=== PATIENT | male | born 1985 ===

== ENCOUNTER 2016-10-04 12:39 | Emergency (ER) | payer BC ==
--- NOTE | ~2016-10-04 | ER ---
PATIENT'S NAME: DAVID SPRINGER RADHA [facility] [place] AGE: 30 Y [address] ROOM: [place] [address] LOCATION: [facility] ADMIT DATE: 10/04/2016 ER/Outpatient Report DISCHARGE DATE: 10/04/2016 FAMILY PHYSICIAN: PHYSICIAN, MARYLOU ATTENDING PHYSICIAN: Virginia Zapata Time of Arrival: 1239 hours. Time Seen: 1305 hours. IDENTIFICATION: 30-year-old male. CHIEF COMPLAINT: Chest pain. HISTORY OF PRESENT ILLNESS: The patient is a 30-year-old male, who presents complaining of chest pain 7/10 for the last 3 weeks, intermittent in nature, but now has been constant since this morning. Dizzy. No diaphoresis. He is short of breath. He has no prior history of heart problems. ALLERGIES: NO KNOWN DRUG ALLERGIES. CURRENT MEDICATIONS: [id number] Prilosec. MEDICAL PROBLEMS: Gastroesophageal reflux disease and Guillain[place], hospitalized in [place] three years ago. PRIOR SURGERIES: For hypospadias. SOCIAL HISTORY: The patient lives here in [place]. Works selling cellphones. Tobacco use, 1 pack per every 2-3 days. Alcohol use, rare. Drug use, denies. FAMILY HISTORY: The patient was adopted, so really unknown. REVIEW OF SYSTEMS: All systems reviewed and negative other than what is noted in the HPI. PATIENT'S NAME: DAVID SPRINGER RADHA [facility] [place] AGE: 30 Y [address] ROOM: [place] [address] LOCATION: [facility] ADMIT DATE: 10/04/2016 ER/Outpatient Report DISCHARGE DATE: 10/04/2016 FAMILY PHYSICIAN: PHYSICIAN, MARYLOU ATTENDING PHYSICIAN: Virginia Zapata PHYSICAL EXAMINATION: VITAL SIGNS: Weight 146.7. The patient is afebrile and vital signs are stable. HEENT: Head: Normocephalic, atraumatic. Ears: TMs translucent both ears. Nose: Mucosa pink. No lesions. Mouth: No lesions. Pharynx benign. NECK: Supple. No lymphadenopathy. LUNGS: Clear to auscultation. HEART: Regular rate and rhythm. No murmur, rub, or gallop. ABDOMEN: Soft, nondistended, and nontender. SKIN: [place], warm, and dry. No lesions or rashes noted. NEURO: The patient is alert and oriented x4. Cranial nerves 2 through 12 grossly intact. Motor strength 5/5 throughout. Sensation is intact to light touch. LABORATORY DATA: Chemistry panel, magnesium, and cardiac enzymes are all normal. ProBNP is 67. D-dimer 0.48. CBC is normal. The patient was given 4 baby aspirin and then a GI cocktail with some relief. He said the sharp pain had improved. One-view chest x-ray, no acute process, pending Radiology over-read. Initial EKG at 1303 hours, sinus bradycardia at 49 beats per minute, no acute ST elevation or depression. Repeat EKG at 1505 hours, sinus bradycardia, Q-waves noted in lead III and as previously noted, no acute ST elevation or depression. IMPRESSION: Chest pain. PLAN: Increase Prilosec to 20 mg b.i.d. for 7 days. Rest. No heavy exertion. Follow up with physician of choice in 1-3 days. Follow up sooner if any problems or concerns. A second set of cardiac enzymes were also negative. The patient and his significant other understand and agree, and all questions have been answered. VIRGINIA ZAPATA MD CAR/modl /[id number] d: 10/05/16 0015 t: 10/06/16 0800, OUTPATIENT REPORT
[2016-10-04 13:13] LABS: BASOPHIL % 0.4 %; EOSINOPHIL # 0.2 K/uL (0.0-0.5); EOSINOPHIL % 2.3 %; HEMOGLOBIN 14.2 g/dL (12.0-17.0); IMMATURE GRANULOCYTE % 0.3 %; LYMPHOCYTE # 3.3 K/uL (0.8-4.0); LYMPHOCYTE % 36.2 %; MCH 28.2 pg (27.0-34.0); MCV 85.5 fl (83.0-98.0); MONOCYTE # 0.6 K/uL (0.0-1.0); MONOCYTE % 6.7 %; MPV 8.7 fl (9.4-12.4); NEUTROPHIL # (ANC) 4.9 K/uL (1.4-9.0); NEUTROPHIL % 54.1 %; NRBC % 0 /100WBC (0-0.00); PLATELET COUNT 363 K/uL (150-450); RBC 5.03 M/uL (4.00-6.00); RDW-CV 12.6 % (11.9-14.6); WBC 9.1 K/uL (4.0-11.0)
[2016-10-04 13:21] LABS: INR - (THERAPEUTIC) 0.92 (0.92-1.07); PROTIME 9.6 SECONDS (9.8-11.4); PTT 27 SECONDS (25-32)
[2016-10-04 13:36] LABS: ALBUMIN 3.8 gm/dL (3.5-5.0); ALK PHOS 59 IU/L (33-138); ALT 40 IU/L (12-78); ANION GAP 13.1 (10.0-19.0); AST 21 IU/L (10-40); BLOOD UREA NITROGEN 11 mg/dL (6-24); CALCIUM 8.8 mg/dL (8.5-10.5); CHLORIDE 108 mMol/L (96-110); CO2 24 mMol/L (22-32); CPK 330 IU/L (35-332); CREATININE 1.3 mg/dL (0.6-1.3); ESTIMATED GFR (MDRD EQUATION) > 60; MAGNESIUM 2.1 mg/dL (1.8-2.6); POTASSIUM 4.1 mMol/L (3.7-5.1); SODIUM 141 mMol/L (135-145); TOTAL BILIRUBIN 0.3 mg/dL (0.0-1.5); TOTAL PROTEIN 7.6 g/dL (6.0-8.4)
[2016-10-04 15:58] LABS: CPK 274 IU/L (35-332)
== END 2016-10-04 16:25 | disposition disaster alternative care site (69) ==
LOC: GMED 12:39
PROVIDERS: Family Medicine
DX: R07.9 Chest pain, unspecified (principal); K21.9 Gastro-esophageal reflux disease without esophagitis; F17.210 Nicotine dependence, cigarettes, uncomplicated; Z79.899 Other long term (current) drug therapy; Z98.890 Other specified postprocedural states